=== PATIENT | female | born 1990 | race Caucasian/White ===

== ENCOUNTER → 2017-01-28 | Outpatient (CLI) | payer OTHER ==
--- NOTE | 2017-01-29 16:43 | MR ---
EXAMINATION TYPE: MR foot LT wo con DATE OF EXAM: 01/28/2017 COMPARISON: Correlation outside radiograph report dated 03/04/2016. Radiographic images are not availa ble for review. HISTORY: 26-year-old female coalition left calcaneonavicular, pain swelling, limited movement TECHNIQUE: Multiplanar, multisequence images of the left foot were obtained without IV contrast. 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 There is some heterogeneous signal at the site of coalition with irregularity of the bone interfaces and no contiguous bridging marrow signal. Extensive marrow edema is seen throughout the navicular, talus, calcaneus, and proximal cuboid as wel l without discrete fracture line. There is a moderate tibiotalar joint effusion. The subtalar joint is aligned. Mild tenosynovial fluid along the medial flexor tendons and trace along the supramalleolar lateral pe roneal tendons. Anterior extensor tendons are satisfactory. The syndesmosis, lateral ligamentous complex, and deltoid ligament appear grossly intact. There may be a mild hallux valgus which could be better evaluated with weightbearing radiographs. The re is a small first-second intermetatarsal bursal effusion. The Lisfranc ligament appears intact. Achilles tendon and plantar fascia are satisfactory. IMPRESSION: 1. MRI confirms a congenital calcaneonavicular coalition. This is either a fibrous or cartilaginous c oalition. No contiguous marrow space is seen. 2. Prominent reactive bone marrow edema within the talus, calcaneus, navicular, and proximal cuboid. No discrete fracture. 3. There may be a mild hallux valgus which could be better evaluated with a weightbearing AP radiogra ph of the foot. 4. Clinical correlation recommended as 50% of these are bilateral even if only one side is symptomati c.
== END | disposition home or self-care (01) ==
LOC: RADMRIMAIN 07:55
PROVIDERS: ATTEND Podiatrist Foot & Ankle Surgery
DX: Q66.89 Other specified congenital deformities of feet (principal)

== ENCOUNTER → 2024-03-27 | Outpatient (CLI) | payer OTHER ==
[2024-03-27 13:16] LABS: BUN/Creat Ratio 20.67 Ratio (12.00-20.00); Blood Urea Nitrogen 12.4 mg/dL (9.0-27.0); Chloride 105 mmol/L (96-109); Glucose 126 mg/dL (70-110); Potassium 4.3 mmol/L (3.5-5.5); Sodium 138 mmol/L (135-145)
[2024-03-27 13:17] LABS: ALT 26 U/L (8-44); AST 17 U/L (13-35); Albumin/Globulin Ratio 1.25 Ratio (1.60-3.17); Alkaline Phosphatase 93 U/L (41-126); Carbon Dioxide 21.7 mmol/L (21.6-31.8); Globulin 3.2 g/dL (1.6-3.3); T4, Free (Free Thyroxine) 1.03 ng/dL (0.80-1.80); Total Bilirubin 0.5 mg/dL (0.3-1.2); Total Protein 7.2 g/dL (6.2-8.2)
== END | disposition home or self-care (01) ==
LOC: LABWHC1 09:34
PROVIDERS: ATTEND Internal Medicine Endocrinology, Diabetes & Metabolism
DX: D35.2 Benign neoplasm of pituitary gland (principal)
CPT/HCPCS: 36415; 80053; 82024; 82533; 84146; 84305; 84439; 84443; 84480

== ENCOUNTER → 2024-05-21 | Outpatient (CLI) | payer OTHER ==
[2024-05-21 15:37] LABS: ALT 23 U/L (8-44); AST 16 U/L (13-35); Albumin 3.9 g/dL (3.8-4.9); Albumin/Globulin Ratio 1.26 Ratio (1.60-3.17); Alkaline Phosphatase 96 U/L (41-126); Blood Urea Nitrogen 11.1 mg/dL (9.0-27.0); Calcium 9.3 mg/dL (8.7-10.3); Chloride 104 mmol/L (96-109); Globulin 3.1 g/dL (1.6-3.3); Glucose 118 mg/dL (70-110); Potassium 4.5 mmol/L (3.5-5.5); Sodium 139 mmol/L (135-145); T4, Free (Free Thyroxine) 0.99 ng/dL (0.80-1.80); Total Bilirubin 0.3 mg/dL (0.3-1.2)
[2024-05-21 15:48] LABS: Follicle Stimulating Hormone 5.8 mIU/mL; Luteinizing Hormone 5.3 mIU/mL
== END | disposition home or self-care (01) ==
LOC: LABWHC1 07:59
PROVIDERS: ATTEND Internal Medicine Endocrinology, Diabetes & Metabolism
DX: D35.2 Benign neoplasm of pituitary gland (principal)
CPT/HCPCS: 36415; 80053; 83001; 83002; 84146; 84305; 84439; 84443; 84480

== ENCOUNTER 2024-07-02 22:55 | Emergency (ER) | payer OTHER ==
[2024-07-02 23:14] VITALS: TEMP 98.1
--- NOTE | 2024-07-02 23:19 | ED ---
Female Urogenital HPI - General Source: patient, RN notes reviewed Mode of arrival: ambulatory Limitations: no limitations - History of Present Illness MD Complaint: vaginal bleeding, pelvic pain Onset/Timin -: days(s) <Primitivo Nix - Last Filed: 07/02/24 23:17> - General Source: patient Mode of arrival: ambulatory Limitations: no limitations - History of Present Illness MD Complaint: vaginal bleeding -: days(s) Location: perineum Radiation: non-radiating, suprapubic Severity: mild Severity scale (1-10): 3 Quality: sharp Consistency: constant Improves with: none Worsens with: none Patient : Yes Associated Symptoms: denies other symptoms - Related Data Sexually active: No <Tashi Cole - Last Filed: 07/04/24 22:47> - General Chief complaint: Vaginal Bleeding Stated complaint: Vaginal Bleeding Time Seen by Provider: 07/02/24 23:07 - History of Present Illness Initial comments: Quick note: This is a 33-year-old female with history of PCOS complaining of vaginal bleeding starting this morning. Patient states bleeding worsened into a steady stream around 2200, going through 3 tampons in 1 hour. Endorses also seeing clots and blood. Endorses associated dizziness, nausea and constant lower abdominal pain (8/10). Patient denies history of similar bleeding or use of blood thinners. Patient states she has not had consistent periods in over 1 year. (Primitivo Nix) This is a 33 female presenting for significant vaginal bleeding no lightheadedness dizziness or weakness (Tashi Cole) - Related Data Home Medications Medication Instructions Recorded Confirmed No Known Home Medications 04/27/16 04/27/16 Allergies Allergy/AdvReac Type Severity Reaction Status Date / Time No Known Allergies Allergy Verified 07/02/24 23:14 Review of Systems ROS Other: All systems not noted in ROS Statement are negative. <Primitivo Nix - Last Filed: 07/02/24 23:17> ROS Other: All systems not noted in ROS Statement are negative. <Tashi Cole - Last Filed: 07/04/24 22:47> ROS Statement: Those systems with pertinent positive or pertinent negative responses have been documented in the HPI. Past Medical History Past Medical History: No Reported History History of Any Multi-Drug Resistant Organisms: None Reported Past Surgical History: No Surgical Hx Reported Past Psychological History: No Psychological Hx Reported Past Alcohol Use History: None Reported Past Drug Use History: None Reported <Primitivo Nix - Last Filed: 07/02/24 23:17> General Exam Limitations: no limitations <Primitivo Nix - Last Filed: 07/02/24 23:17> General appearance: alert, in no apparent distress Head exam: Present: atraumatic, normocephalic, normal inspection Eye exam: Present: normal appearance, PERRL, EOMI. Absent: scleral icterus, conjunctival injection, periorbital swelling ENT exam: Present: normal exam, mucous membranes moist Neck exam: Present: normal inspection. Absent: tenderness, meningismus, lymphadenopathy Respiratory exam: Present: normal lung sounds bilaterally. Absent: respiratory distress, wheezes, rales, rhonchi, stridor Cardiovascular Exam: Present: regular rate, normal rhythm, normal heart sounds. Absent: systolic murmur, diastolic murmur, rubs, gallop, clicks GI/Abdominal exam: Present: soft, normal bowel sounds. Absent: distended, tenderness, guarding, rebound, rigid Extremities exam: Present: normal inspection, full ROM, normal capillary refill. Absent: tenderness, pedal edema, joint swelling, calf tenderness Back exam: Present: normal inspection Neurological exam: Present: alert, oriented X3, CN II-XII intact Psychiatric exam: Present: normal affect, normal mood Skin exam: Present: warm, dry, intact, normal color. Absent: rash <Tashi Cole - Last Filed: 07/04/24 22:47> - General Exam Comments Initial Comments: Visual Physical Exam Vital signs reviewed General: Patient appears fatigued. Nontoxic, no acute distress. Head: Normocephalic, atraumatic Eyes: PERRLA, EOMI ENT: Airway patent Chest: Nonlabored breathing Skin: No visual rash, normal skin tone Neuro: Alert and oriented 3 Musculoskeletal: No gross abnormalities (Primitivo Nix) Course <Tashi Cole - Last Filed: 07/04/24 22:47> Vital Signs 07/02/24 07/03/24 07/03/24 23:09 00:46 01:10 Temperature 98.1 F Pulse Rate 66 54 L 54 L Respiratory 18 15 14 Rate Blood Pressure 88/57 96/64 102/63 O2 Sat by Pulse 99 100 Oximetry 07/03/24 07/03/24 01:40 03:06 Temperature Pulse Rate 73 70 Respiratory 14 15 Rate Blood Pressure 113/66 111/68 O2 Sat by Pulse 96 97 Oximetry - Reevaluation(s) Reevaluation #1: Medical records reviewed (Tashi Cole) Reevaluation #2: No significant acute hemorrhage here in the ER (Tashi Cole) Reevaluation #3: Informed of results and questions answered (Tashi Cole) Reevaluation #4: Was pt. sent in by a medical professional or institution (, [facility], [facility]IL[facility] OPERATOR HELPER, urgent care, hospital, or [facility]...) When possible be specific @ -no Did you speak to anyone other than the patient for history (EMS, parent, family, police, friend...)? What history was obtained from this source @ -no Did you review nursing and triage notes (agree or disagree)? Why? @ -agree Are old charts reviewed (outside hosp., previous admission, EMS record, old EKG, old radiological studies, urgent care reports/EKG's, [facility] records)? Report findings @ -yes Differential Diagnosis (chest pain, altered mental status, abdominal pain women, abdominal pain men, vaginal bleeding, weakness, fever, dyspnea, syncope, headache, dizziness, GI bleed, back pain, seizure, CVA, palpatations, mental health, musculoskeletal)? @ -prior EKG interpreted by me (3pts min.). @ -no X-rays interpreted by me (1pt min.). @ -no CT interpreted by me (1pt min.). @ -no U/S interpreted by me (1pt. min.). @ -yes negative for acute disease What testing was considered but not performed or refused? (CT, X-rays, U/S, labs)? Why? @ -none What meds were considered but not given or refused? Why? @ -none Did you discuss the management of the patient with other professionals (professionals i.e. [facility] Penny, [facility] OPERATOR HELPER, lab, RT, psych nurse, social sciences department chair, associate justice, teacher, ship officer, ed case manager)? Give summary @ -no Was smoking cessation discussed for >3mins.? @ -no Was critical care preformed (if so, how long)? @ -no Were there social determinants of health that impacted care today? How? (Homelessness, low income, unemployed, alcoholism, drug addiction, transportation, low edu. Level, literacy, decrease access to med. care, [facility], rehab)? @ -none Was there de-escalation of care discussed even if they declined (Discuss DNR or withdrawal of care, Hospice)? DNR status @ -no What co-morbidities impacted this encounter? (DM, HTN, Smoking, COPD, CAD, Cancer, CVA, ARF, Chemo, Hep., AIDS, mental health diagnosis, sleep apnea, morbid obesity)? @ -none Was patient admitted / discharged? Hospital course, mention meds given and route, prescriptions, significant lab abnormalities, going to OR and other pertinent info. @ - 33 female with vaginal bleeding. No significant acute bleeding noted here in the ER, patient does appear to have significant miscarriage finished, patient can be discharged home Discharge Undiagnosed new problem with uncertain prognosis? @ -no Drug Therapy requiring intensive monitoring for toxicity (Heparin, Nitro, Insulin, Cardizem)? @ -no Were any procedures done? @ -no Diagnosis/symptom? @ -Dysfunctional uterine bleeding Acute, or Chronic, or Acute on Chronic? @ -Acute Uncomplicated (without systemic symptoms) or Complicated (systemic symptoms)? @ -Complicated Side effects of treatment? @ -no Exacerbation, Progression, or Severe Exacerbation? @ -exacerbation Poses a threat to life or bodily function? How? (Chest pain, USA, SD, pneumonia, PE, COPD, DKA, ARF, appy, cholecystitis, CVA, Diverticulitis, Homicidal, Suicidal, threat to staff... and all critical care pts) @ -yes acute bleeding (Tasih Cole) Medical Decision Making <Primitivo iNx - Last Filed: 07/02/24 23:17> - Lab Data Result diagrams: 07/02/24 23:50 07/02/24 23:50 - Radiology Data Radiology results: report reviewed (Ultrasound is negative for acute disease), image reviewed <Tashi Cole - Last Filed: 07/04/24 22:47> - Medical Decision Making I completed the quick note portion of this chart signed LILI Harrison (Primitivo Nix) 33 female with vaginal bleeding. No significant acute bleeding noted here in the ER, patient does appear to have significant miscarriage finished, patient can be discharged home (Tashi Cole) - Lab Data Lab Results 07/02/24 07/02/24 07/02/24 Range/Units 23:50 23:50 23:50 WBC 14.3 H (3.8-10.6) k/uL RBC 3.96 (3.80-5.40) m/uL Hgb 12.5 (11.4-16.0) gm/dL Hct 36.6 (34.0-46.0) % MCV 92.3 (80.0-100.0) fL MCH 31.6 (25.0-35.0) pg MCHC 34.2 (31.0-37.0) g/dL RDW 11.9 (11.5-15.5) % Plt Count 321 (150-450) k/uL MPV 7.8 Neutrophils % 61 % Lymphocytes % 32 % Monocytes % 5 % Eosinophils % 1 % Basophils % 0 % Neutrophils # 8.7 H (1.3-7.7) k/uL Lymphocytes # 4.5 (1.0-4.8) k/uL Monocytes # 0.7 (0-1.0) k/uL Eosinophils # 0.1 (0-0.7) k/uL Basophils # 0.0 (0-0.2) k/uL PT (10.0-12.5) sec INR (<1.2) APTT (22.0-30.0) sec Sodium 134 L (137-145) mmol/L Potassium 3.5 (3.5-5.1) mmol/L Chloride 106 (98-107) mmol/L Carbon Dioxide 22 (22-30) mmol/L Anion Gap 6 mmol/L BUN 11 (7-17) mg/dL Creatinine 0.72 (0.52-1.04) mg/dL Est GFR (CKD-EPI)AfAm >90 (>60 ml/min/1.73 sqM) Est GFR (CKD-EPI)NonAf >90 (>60 ml/min/1.73 sqM) Glucose 137 H (74-99) mg/dL Plasma Lactic Acid Ascencion 1.5 (0.7-2.0) mmol/L Calcium 8.8 (8.4-10.2) mg/dL Phosphorus 3.4 (2.5-4.5) mg/dL Magnesium 1.7 (1.6-2.3) mg/dL Total Bilirubin 0.6 (0.2-1.3) mg/dL AST 17 (14-36) U/L ALT 17 (4-34) U/L Alkaline Phosphatase 84 (38-126) U/L Total Protein 7.3 (6.3-8.2) g/dL Albumin 4.0 (3.5-5.0) g/dL Urine Color Urine Appearance (Clear) Urine pH (5.0-8.0) Ur Specific [place] (1.001-1.035) Urine Protein (Negative) Urine Glucose (UA) (Negative) Urine Ketones (Negative) Urine Blood (Negative) Urine Nitrite (Negative) Urine Bilirubin (Negative) Urine Urobilinogen (<2.0) mg/dL Ur Leukocyte Esterase (Negative) Urine RBC (0-5) /hpf Urine WBC (0-5) /hpf Ur Squamous Epith Cells (0-4) /hpf Urine Mucus (None) /hpf Urine HCG, Qual (Not Detectd) Blood Type Blood Type Confirm Blood Type Recheck Bld Type Recheck Status Antibody Screen Spec Expiration Date 07/02/24 07/03/24 07/03/24 Range/Units 23:59 00:05 02:08 WBC (3.8-10.6) k/uL RBC (3.80-5.40) m/uL Hgb (11.4-16.0) gm/dL Hct (34.0-46.0) % MCV (80.0-100.0) fL MCH (25.0-35.0) pg MCHC (31.0-37.0) g/dL RDW (11.5-15.5) % Plt Count (150-450) k/uL MPV Neutrophils % % Lymphocytes % % Monocytes % % Eosinophils % % Basophils % % Neutrophils # (1.3-7.7) k/uL Lymphocytes # (1.0-4.8) k/uL Monocytes # (0-1.0) k/uL Eosinophils # (0-0.7) k/uL Basophils # (0-0.2) k/uL PT (10.0-12.5) sec INR (<1.2) APTT (22.0-30.0) sec Sodium (137-145) mmol/L Potassium (3.5-5.1) mmol/L Chloride (98-107) mmol/L Carbon Dioxide (22-30) mmol/L Anion Gap mmol/L BUN (7-17) mg/dL Creatinine (0.52-1.04) mg/dL Est GFR (CKD-EPI)AfAm (>60 ml/min/1.73 sqM) Est GFR (CKD-EPI)NonAf (>60 ml/min/1.73 sqM) Glucose (74-99) mg/dL Plasma Lactic Acid Ascencion (0.7-2.0) mmol/L Calcium (8.4-10.2) mg/dL Phosphorus (2.5-4.5) mg/dL Magnesium (1.6-2.3) mg/dL Total Bilirubin (0.2-1.3) mg/dL AST (14-36) U/L ALT (4-34) U/L Alkaline Phosphatase (38-126) U/L Total Protein (6.3-8.2) g/dL Albumin (3.5-5.0) g/dL Urine Color Urine Appearance (Clear) Urine pH (5.0-8.0) Ur Specific [place] (1.001-1.035) Urine Protein (Negative) Urine Glucose (UA) (Negative) Urine Ketones (Negative) Urine Blood (Negative) Urine Nitrite (Negative) Urine Bilirubin (Negative) Urine Urobilinogen (<2.0) mg/dL Ur Leukocyte Esterase (Negative) Urine RBC (0-5) /hpf Urine WBC (0-5) /hpf Ur Squamous Epith Cells (0-4) /hpf Urine Mucus (None) /hpf Urine HCG, Qual Not Detected (Not Detectd) Blood Type A Positive Blood Type Confirm A Positive Blood Type Recheck No Previous Record Bld Type Recheck Status CABO Indicated Antibody Screen NEGATIVE Spec Expiration Date 07/05/2024235807/03/24 07/03/24 Range/Units 02:08 02:46 WBC (3.8-10.6) k/uL RBC (3.80-5.40) m/uL Hgb (11.4-16.0) gm/dL Hct (34.0-46.0) % MCV (80.0-100.0) fL MCH (25.0-35.0) pg MCHC (31.0-37.0) g/dL RDW (11.5-15.5) % Plt Count (150-450) k/uL MPV Neutrophils % % Lymphocytes % % Monocytes % % Eosinophils % % Basophils % % Neutrophils # (1.3-7.7) k/uL Lymphocytes # (1.0-4.8) k/uL Monocytes # (0-1.0) k/uL Eosinophils # (0-0.7) k/uL Basophils # (0-0.2) k/uL PT 11.5 (10.0-12.5) sec INR 1.0 (<1.2) APTT 19.8 L (22.0-30.0) sec Sodium (137-145) mmol/L Potassium (3.5-5.1) mmol/L Chloride (98-107) mmol/L Carbon Dioxide (22-30) mmol/L Anion Gap mmol/L BUN (7-17) mg/dL Creatinine (0.52-1.04) mg/dL Est GFR (CKD-EPI)AfAm (>60 ml/min/1.73 sqM) Est GFR (CKD-EPI)NonAf (>60 ml/min/1.73 sqM) Glucose (74-99) mg/dL Plasma Lactic Acid Ascencion (0.7-2.0) mmol/L Calcium (8.4-10.2) mg/dL Phosphorus (2.5-4.5) mg/dL Magnesium (1.6-2.3) mg/dL Total Bilirubin (0.2-1.3) mg/dL AST (14-36) U/L ALT (4-34) U/L Alkaline Phosphatase (38-126) U/L Total Protein (6.3-8.2) g/dL Albumin (3.5-5.0) g/dL Urine Color Light Red Urine Appearance Clear (Clear) Urine pH 6.0 (5.0-8.0) Ur Specific [place] 1.020 (1.001-1.035) Urine Protein 1+ H (Negative) Urine Glucose (UA) Negative (Negative) Urine Ketones Negative (Negative) Urine Blood Large H (Negative) Urine Nitrite Negative (Negative) Urine Bilirubin Negative (Negative) Urine Urobilinogen 2.0 (<2.0) mg/dL Ur Leukocyte Esterase Moderate H (Negative) Urine RBC >182 H (0-5) /hpf Urine WBC 36 H (0-5) /hpf Ur Squamous Epith Cells 4 (0-4) /hpf Urine Mucus Rare H (None) /hpf Urine HCG, Qual (Not Detectd) Blood Type Blood Type Confirm Blood Type Recheck Bld Type Recheck Status Antibody Screen Spec Expiration Date Disposition <Primitivo Nix - Last Filed: 07/02/24 23:17> Is patient prescribed a controlled substance at d/c from ED?: No Time of Disposition: 03:00 <Tashi Cole - Last Filed: 07/04/24 22:47> Clinical Impression: Dysfunctional uterine bleeding Disposition: HOME SELF-CARE Condition: Good Instructions (If sedation given, give patient instructions): Abnormal (Dysfunctional) Uterine Bleeding (ED), Dysmenorrhea (ED) Referrals: Jac Landin DO [Primary Care Provider] - 1-2 days
[2024-07-02] MEDS: SODIUM CHLORIDE 0.9% 1,000 ML IV STA ×2 (23:54→23:55)
[2024-07-02] MEDS: ONDANSETRON 4 MG/2 ML VIAL IVP STA (23:54)
[2024-07-03 00:13] LABS: Basophils % (A) 0 %; Eosinophils # (A) 0.1 k/uL (0-0.7); Eosinophils % (A) 1 %; HCT 36.6 % (34.0-46.0); HGB 12.5 gm/dL (11.4-16.0); Lymphocytes # (A) 4.5 k/uL (1.0-4.8); Lymphocytes % (A) 32 %; MCH 31.6 pg (25.0-35.0); MCHC 34.2 g/dL (31.0-37.0); MCV 92.3 fL (80.0-100.0); Mean Platelet Volume 7.8; Monocytes # (A) 0.7 k/uL (0-1.0); Monocytes % (A) 5 %; Neutrophils # (A) 8.7 k/uL (1.3-7.7); Neutrophils % (A) 61 %; Platelet Count 321 k/uL (150-450); RBC 3.96 m/uL (3.80-5.40); RDW 11.9 % (11.5-15.5); WBC 14.3 k/uL (3.8-10.6)
[2024-07-03 00:30] LABS: ALT 17 U/L (4-34); AST 17 U/L (14-36); African American GFR (CKD) >90 (>60 ml/min/1.73 sqM); Alkaline Phosphatase 84 U/L (38-126); Anion Gap 6 mmol/L; Blood Urea Nitrogen 11 mg/dL (7-17); Calcium 8.8 mg/dL (8.4-10.2); Carbon Dioxide 22 mmol/L (22-30); Chloride 106 mmol/L (98-107); Glucose 137 mg/dL (74-99); Magnesium 1.7 mg/dL (1.6-2.3); Non-African American GFR(CKD) >90 (>60 ml/min/1.73 sqM); Phosphorus 3.4 mg/dL (2.5-4.5); Potassium 3.5 mmol/L (3.5-5.1); Sodium 134 mmol/L (137-145); Total Bilirubin 0.6 mg/dL (0.2-1.3); Total Protein 7.3 g/dL (6.3-8.2)
[2024-07-03 02:24] LABS: Appearance,Urine Clear (Clear); Bilirubin,Urine Negative (Negative); Blood,Urine Large (Negative); Color,Urine Light Red; Glucose,Urine (UA) Negative (Negative); Ketones,Urine Negative (Negative); Leukocyte Esterase,Urine Moderate (Negative); Mucus,Urine Rare /hpf; Nitrite,Urine Negative (Negative); Protein,Urine 1+ (Negative); RBC,Urine >182 /hpf (0-5); Squamous Epithelial Cell,Urine 4 /hpf (0-4); WBC,Urine 36 /hpf (0-5)
--- NOTE | 2024-07-03 02:48 | US ---
EXAM: US Pelvis Transvaginal CLINICAL HISTORY: Metrorrhagia, lower abdominal pain TECHNIQUE: Real-time transvaginal pelvic ultrasound with image documentation. Transvaginal imaging was used for better evaluation of the endometrium and adnexa. COMPARISON: No relevant prior studies available. FINDINGS: Uterus/cervix: 9.3 x 5.6 x 5.3 cm. Thickened endometrial stripe at 1.5 cm. No myometrial mass. Right ovary: 3.1 x 2.3 x 2.2 cm. No mass. Normal blood flow. No evidence for torsion. Left ovary: Not visualized due to bowel gas and body habitus. Adnexa: No free fluid or adnexal mass. IMPRESSION: Nonspecific endometrial thickening. Unremarkable right ovary without evidence for torsion. Left ovary not visualized.
[2024-07-03 03:07] VITALS: BP 111/68; PULSE 70; RESP 15
[2024-07-03 03:19] LABS: Prothrombin Time 11.5 sec (10.0-12.5)
[2024-07-03 03:31] LABS: Partial Thromboplastin Time 19.8 sec (22.0-30.0)
== END 2024-07-03 03:07 | disposition home or self-care (01) ==
LOC: EC 22:55
DX: N93.8 Other specified abnormal uterine and vaginal bleeding (principal)
CPT/HCPCS: 99284; 96374; 96361 ×3; 36415; 86900; 86901; 80053; 83605; 83735; 84100; 85025; 85610; 85730; 86850; 81001; 81025; 93976; 76830; J2405

== ENCOUNTER → 2024-11-24 | Outpatient (CLI) | payer OTHER | END | disposition home or self-care (01) | LOC: LABWHC1 06:53 | PROVIDERS: ATTEND Internal Medicine Endocrinology, Diabetes & Metabolism | DX: D35.2 Benign neoplasm of pituitary gland (principal) | CPT/HCPCS: 36415; 82024; 82533 ==